=== PATIENT | male | born 1940 | race American Indian/Alaskan Native ===

== ENCOUNTER 2018-10-28 07:01 | Outpatient (CLI) | payer MEDICARE ==
--- NOTE | 2018-10-29 12:30 | Fluoroscopy Report ---
UPPER GI SERIES WITH CONTRAST HISTORY: Hiatal hernia. FINDINGS: 32 fluoroscopic images were seen during this exam. Deglutition was normal. No evidence for aspiration. The esophagus is normal caliber and mucosal pattern throughout. No evidence for hiatal hernia. Motility appeared decreased. A few episodes of gastroesophageal reflux to the mid esophagus was witnessed during this exam. The gastric cavity is normal contour and mucosal pattern. There appears to be a gastric subtype with the gastric fundus pointing downward. There is no evidence for ulceration, mass or obstruction. Gastric motility appeared severely decreased throughout this exam. There is eventual emptying into the duodenum. The duodenum is normal caliber and mucosal pattern. IMPRESSION: No evidence for obstruction, mass or stricture. Gastroparesis is suspected. Occasional episodes of reflux to the midesophagus were witnessed.
== END 2018-10-28 07:02 | disposition home or self-care (01) ==
LOC: FLUORO 07:01
PROVIDERS: ATTEND Internal Medicine Gastroenterology
DX: K44.9 Diaphragmatic hernia without obstruction or gangrene (principal)
CPT/HCPCS: 74247

== ENCOUNTER 2018-11-25 07:32 | Outpatient (CLI) | payer MEDICARE ==
--- NOTE | 2018-11-25 14:31 | Nuclear Medicine Report ---
NUCLEAR MEDICINE GASTRIC EMPTYING SCAN HISTORY: Gastric dysmotility, abnormal findings on GI tract imaging. FINDINGS: Anterior abdominal images were obtained for 90 minutes after ingestion of 1 mCi of technetium 99m sulfur cold in oatmeal. Half life for gastric emptying measures 287 minutes. No scintigraphic evidence for reflux disease. IMPRESSION: Gastroparesis.
== END 2018-11-25 07:33 | disposition home or self-care (01) ==
LOC: NM 07:32
PROVIDERS: ATTEND Internal Medicine Gastroenterology
DX: K31.84 Gastroparesis (principal)
CPT/HCPCS: 78264; A9541

== ENCOUNTER 2018-12-28 10:15 | Outpatient (CLI) | payer MEDICARE ==
[2018-12-28 11:06] LABS: Blood Urea Nitrogen 13 mg/dL (9-20)
--- NOTE | 2018-12-28 13:27 | Cat Scan Report ---
CT ABDOMEN PELVIS WITH CONTRAST: HISTORY: Weight loss, nausea and vomiting, gastroparesis, GERD. COMPARISON: none. TECHNIQUE: Helical CT in 1.25mm intervals following IV contrast. Sagittal and coronal reconstructions. FINDINGS: Lung bases: Normal. Liver: Normal. Biliary system: Normal. Pancreas: Normal. Spleen: Normal. Kidneys/ureters/bladder: Normal. Surgical clips are noted on both sides of the bladder base which probably represents prostatectomy changes, correlate with history. Adrenal glands: Normal. Aorta: Normal. Intestines: Within normal limits given no oral contrast was administered. No evidence for obvious mass, obstruction or focal inflammation. Appendix: Normal. Ascites: None. Adenopathy: None. Musculoskeletal: Borderline bone mineralization. Mild thoracolumbar spondylosis. IMPRESSION: No acute process is identified in the abdomen or pelvis. No clear explanation for weight loss/nausea and vomiting. Prostatectomy changes. Mild degenerative changes in the thoracolumbar spine.
== END 2018-12-28 10:16 | disposition home or self-care (01) ==
LOC: CT 10:15
PROVIDERS: ATTEND Internal Medicine Gastroenterology
DX: K31.84 Gastroparesis (principal); K21.9 Gastro-esophageal reflux disease without esophagitis; M47.815 Spondylosis without myelopathy or radiculopathy, thoracolumbar region; R63.4 Abnormal weight loss; R11.2 Nausea with vomiting, unspecified
CPT/HCPCS: 36415; 74177; 82565; 84520; Q9967